=== PATIENT | male | born 1965 | race Caucasian/White ===

== ENCOUNTER 2019-03-25 07:50 | Day surgery (SDC) | payer OTHER, SELFPAY ==
[2019-03-20 11:42] VITALS: BMI 26.4
[2019-03-25] VITALS (13 sets, daily range): BP systolic 94–120; BP diastolic 52–87; PULSE 54–66; RESP 9–15; TEMP 36.2–36.6; O2SAT 96–99; BMI 26.4
--- NOTE | 2019-03-25 08:42 | PM.HP.1 ---
History of Present Illness History of Present Illness Date Patient Seen: 03/25/19 Time Patient Seen: 08:42 Chief complaint: [id number] Narrative: Pt seen and examined unchanged since clinic note bilateral small inguinal hernias Plan for laproscopic TEP repairs Possible conversion to open Patient History Medical History (Updated 03/20/19 @ 11:49 by Natasha Pena RN) Arthritis (Acute) Back pain (Acute) Basal cell carcinoma (Resolved) Constipation (Acute) Depression (Acute) Hx of gastric ulcer (Acute ~2004) Kidney stones (Resolved) Migraine headache (Chronic) Osteoarthritis (Acute) Sinusitis (Acute) Surgical History (Updated 03/20/19 @ 11:49 by Natasha Pena RN) History of carpal tunnel surgery of right wrist (Acute) History of colonoscopy (Acute ~2016) Hx of cervical discectomy (Acute 03/06/16) Hx of shoulder surgery (Acute) Family History (Updated 11/10/18 @ 14:36 by Elisa Murphy LPN) Father Hypertension Heart disease, hypertensive, benign Mother Cancer Social History (Updated 11/10/18 @ 14:38 by Elisa Murphy LPN) marital status: household members: spouse and family occupational status: employed Smoking Status: Never smoker alcohol intake: current substance use type: does not use Family & Social History Family History (Updated 11/10/18 @ 14:36 by Elisa Murphy LPN) Father Hypertension Heart disease, hypertensive, benign Mother Cancer Social History: household members spouse,family Tobacco & Substance use: Smoking Status Never smoker alcohol intake current Meds Home Medications and Allergies Home Medications Medication Instructions Recorded Confirmed Type meloxicam 15 mg PO QDAY #0 03/02/16 03/25/19 History sildenafil (antihypertensive) 2 mg PO PRN PRN #0 03/02/16 03/25/19 History sumatriptan succinate [Imitrex] 50 mg PO PRN PRN #0 tab 03/02/16 03/25/19 History bupropion HCl 100 mg tablet,12 hr 100 mg PO DAILY 11/10/18 03/25/19 History sustained-release nadolol 40 mg tablet 40 mg PO DAILY 11/10/18 03/25/19 History oxycodone-acetaminophen 5 mg-325 1 tab PO Q4-6H PRN 11/10/18 03/25/19 History mg tablet Allergies Allergy/AdvReac Type Severity Reaction Status Date / Time aspartame [ASPARTAME] Allergy Mild MIGRAINE Unverified 11/10/18 14:33 sucralose [SUCRALOSE] Allergy Unknown MIGRAINE Unverified 11/10/18 14:33
[2019-03-25] MEDS: LACTATED RINGERS 1,000 ML 42 ML IV (08:45)
[2019-03-25] MEDS: CEFAZOLIN 2 GM/100 ML FROZ.PIGGY IV (09:35)
--- NOTE | 2019-03-25 09:57 | SUR.OPER ---
Supine on padded OR bed, head on pillow, arm padded and tucked at side, legs uncrossed, safety belt at thigh, tape over blanket over lower legs .
--- NOTE | 2019-03-25 09:58 | SUR.OPER ---
positioned on pink pad
--- NOTE | 2019-03-25 09:59 | SUR.OPER ---
Case booked as open bilateral hernia repair
[2019-03-25] MEDS: BUPIVACAINE 0.25% W/ EPI 30 ML VIAL INJ (10:10)
[2019-03-25] MEDS: VANCOMYCIN 1,000 MG VIAL 1000 MG TOP (10:11)
--- NOTE | 2019-03-25 11:17 | PM.OP.1 ---
Operative Date/Time/Diagnoses Date of procedure: 03/25/19 Time of procedure: 11:18 Pre-op diagnosis: Bilateral inguinal hernias Post-op diagnosis: same Procedure & Clinicians Procedure: Laproscopic inguinal hernia repair - TEP - bilateral Same procedure as scheduled: Yes Indications: 53-year-old man presented to the clinic with bilateral inguinal hernia -desired repair, desired rapid return to activity Click Yes if Unassisted: Yes Anesthesia Type: General Operative Notes Findings: Bilateral indirect inguinal hernias Closure Type: primary Specimen(s): none sent Prosthetic devices, grafts, tissues, transplants, or devices: [employer] 3DMax regular weight polypropylene mesh , right and left side size large utilized Estimated Blood Loss (mL): 10 Procedure in detail: Patient was brought to the operating room he is intubated without incident he was prepped and draped in usual sterile fashion time-out was completed. A curvilinear incision was made just inferior to the inferior umbilical crown this was carried through the skin and subcutaneous tissue until the underlying fascia was identified. The fascia overlying the right rectus sheath was cleared of its alveolar of fatty tissue and then a transversely oriented incision was made through the anterior rectus sheath. This was opened approximately 1 cm. The underlying muscles of the rectus abdominis were retracted laterally and a finger was inserted deep to them. Using digital dissection a space was made deep to the fibers of the rectus abdominus muscle but superficial to the posterior sheath. Into the space a 12 mm balloon tip trocar was inserted and held in place. A camera was then inserted through the trocar and the space was dissected utilizing the camera into the pubic symphysis was encountered. Two 5 mm ports were then placed in the midline into the opened up preperitoneal space spaced approximately 4 cm apart equal distance between the pubic symphysis and the umbilicus. Utilizing laparoscopic graspers then the pre tip peritoneal space was widely open. I started on the right side. Jeronimo's ligament was identified and followed out laterally as well as the space of Retzius was opened. I then moved far laterally in the vicinity of the anterior superior iliac spine and open up this space. The peritoneal reflection was identified and pulled posteriorly. I then began to work on the central space at the level of the internal ring. The hernia defect was identified and the hernia sac reduced out of the inguinal canal. The peritoneum was then stripped pushing it up posteriorly well below the internal ring. I then finished the dissection working in the vicinity of the iliac vessels great care was taken to avoid stripping them of their overlying fatty tissue. At this point I felt confident that the area had been well de peritonealized there was no direct defect there is no femoral hernia identified. I then proceeded to open up the space on the left side utilizing identical technique a small did indirect defect was identified and the hernia sac similarly reduced. Next [employer] 3D max polypropylene mesh was obtained both right and left sides this was rolled tightly soaked in vancomycin solution and then placed into the preperitoneal space utilizing the umbilical camera port. both meshes were then on rolled in the respective spaces then oriented so as to well cover the internal ring as well as the site of a potential later a direct defect. Meshes were oriented to meet at the midline. The medial aspect of each mesh was tacked to Jeronimo's ligament utilizing absorbable tacking device. Next I inspected the entire area ensured that hemostasis was excellent as well as ensured that the mesh was well placed without undue wrinkling. The space was then deinsufflated. The 5 mm ports were then removed without difficulty as was the 12 mm umbilical port. the fascial defect was then closed using running 0 Vicryl suture utilizing a UR6 needle. Local anesthetic was infiltrated into the wounds. The wounds were copiously irrigated. Skin was closed using 4 O Vicryl in a subcuticular fashion. Skin glue was applied the patient was extubated and brought to PACU without incident Complications: none Post-operative Condition: stable Disposition: PACU Plan for aftercare: home
[2019-03-25] MEDS: fentaNYL 100 MCG/2 ML INJ 50 MCG IV (11:36)
[2019-03-25] MEDS: OXYCODONE/ACETAMINOPHEN 5/325 TABLET 1 TAB PO ×2 (11:57→13:18)
--- NOTE | 2019-03-25 13:23 | SUR.PHASEII ---
1245 Assumed care from Victoria Garner RN. Patient resting comfortable, present, states that he would like a few more minutes to relax. They state that instructions have been reviewed, no questions. 1300 States that he is ready to go. Interested in another pain pill but declines at the moment: will consider prior to discharge. 1315 Ambulated to the bathroom w/ standby. Voided QS w/o difficulty.
--- NOTE | 2019-03-25 13:32 | SUR.PHASEII ---
1318 PO rx given then to care, home with
== END 2019-03-25 13:20 | disposition home or self-care (01) ==
PROVIDERS: Family Provider Student in an Organized Health Care Education/Training Program; PCP Student in an Organized Health Care Education/Training Program; Visit Provider Surgery
PROC: (CPT 49650; principal; 2019-03-25 08:45)
DX: K40.20 Bilateral inguinal hernia, without obstruction or gangrene, not specified as recurrent (principal)
CPT/HCPCS: 49650; C1781; J0690; J1100; J2405; J2704; J3010

== ENCOUNTER → 2019-04-09 17:01 | Outpatient (CLI) | payer OTHER, SELFPAY | PROVIDERS: PCP Student in an Organized Health Care Education/Training Program | DX: Z23 Encounter for immunization (principal) | CPT/HCPCS: 90471; 90686 ==

== ENCOUNTER 2019-07-13 14:29 | Emergency (ER) | payer OTHER, SELFPAY ==
[2019-07-13 14:57] VITALS: BP 118/68; PULSE 71; RESP 16; TEMP 36.2; O2SAT 97
[2019-07-13 15:13] LABS: Appearance Urine UA CLEAR; Bilirubin Urine UA NEGATIVE (NEGATIVE); Color Urine UA YELLOW; Glucose Urine UA NEGATIVE (Negative); Ketones Urine UA NEGATIVE (NEGATIVE); Leukocyte Esterase Urine UA TRACE (NEGATIVE); Nitrite Urine UA NEGATIVE (Negative); Occult Blood Urine UA 3+ (Negative); Protein Urine UA NEGATIVE (Negative); Specific Gravity Urine UA <=1.005 (1.000-1.035); Urobilinogen Urine UA 0.2 E.U./dL (0.2)
[2019-07-13 15:31] LABS: RBC Urine 30-100/HPF (0-5/HPF)
[2019-07-13 15:32] LABS: Amorphous Sediment Urine 1+; Bacteria Urine Moderate (10-30); Culture Indicated Urine Specimen Cultured; WBC Urine 5-10/HPF (0-5/HPF)
--- NOTE | 2019-07-13 20:08 | ED.MALEGU ---
HPI - Male Genitourinary General Chief complaint: Urogenital-Male Stated complaint: thinks he has a kidney stone Source: patient Mode of arrival: Ambulatory History of Present Illness HPI Narrative: Patient left without being seen. Related Data Home Medications Medication Instructions Recorded Confirmed meloxicam 15 mg PO QDAY #0 03/02/16 04/08/19 sildenafil (pulm.hypertension) 2 mg PO PRN PRN #0 03/02/16 04/08/19 sumatriptan succinate [Imitrex] 50 mg PO PRN PRN #0 tab 03/02/16 04/08/19 bupropion HCl 100 mg tablet,12 hr 100 mg PO DAILY 11/10/18 04/08/19 sustained-release nadolol 40 mg tablet 40 mg PO DAILY 11/10/18 04/08/19 oxycodone-acetaminophen 5 mg-325 1 tab PO Q4-6H PRN 11/10/18 04/08/19 mg tablet Previous Rx's Medication Instructions Recorded acetaminophen 1,000 mg PO Q6H #30 cap 03/25/19 oxycodone See Rx Instructions .ROUTE 03/25/19 .COMPLEX PRN #10 tab polyethylene glycol 3350 [Miralax] 17 gram PO DAILY #10 each 03/25/19 Allergies Allergy/AdvReac Type Severity Reaction Status Date / Time aspartame [ASPARTAME] Allergy Mild MIGRAINE Verified 04/08/19 11:06 sucralose [SUCRALOSE] Allergy Unknown MIGRAINE Verified 04/08/19 11:06 Patient History Medical History (Updated 07/13/19 @ 16:36 by Keisha Miranda RN) Arthritis (Acute) Back pain (Acute) Basal cell carcinoma (Resolved) Constipation (Acute) Depression (Acute) Hx of gastric ulcer (Acute ~2004) Kidney stones (Resolved) Migraine headache (Chronic) Osteoarthritis (Acute) Sinusitis (Acute) Surgical History (Updated 03/20/19 @ 11:49 by Natasha Pena RN) History of carpal tunnel surgery of right wrist (Acute) History of colonoscopy (Acute ~2016) Hx of cervical discectomy (Acute 03/06/16) Hx of shoulder surgery (Acute) Family History (Updated 11/10/18 @ 14:36 by Elisa Murphy LPN) Father Hypertension Heart disease, hypertensive, benign Mother Cancer Social History (Updated 11/10/18 @ 14:38 by Elisa Murphy LPN) marital status: household members: spouse and family occupational status: employed Smoking Status: Never smoker alcohol intake: current substance use type: does not use Smoking Status: Never smoker alcohol intake frequency: holidays/special occasions only Substance Use Type: does not use Exam Initial Vital Signs Initial Vital Signs: Vital Signs Temperature 97.1 F L 07/13/19 14:57 Pulse Rate 71 07/13/19 14:57 Respiratory Rate 16 07/13/19 14:57 Blood Pressure 118/68 07/13/19 14:57 Pulse Oximetry 97 07/13/19 14:57 Course Orders Ordered: ED Orders 07/13/19 15:05 UA Complete [Urinalysis and Microscopic] Stat Urine Culture Stat Vital Signs Vital signs: Vital Signs - 8 hr 07/13/19 14:57 Temperature 97.1 F L Pulse Rate 71 Respiratory Rate 16 Blood Pressure 118/68 Pulse Oximetry 97 MDM - Male Genitourinary Lab Data Labs: Lab Results 07/13/19 Range/Units 15:05 Urine Color Yellow Urine Appearance Clear Urine pH 6.0 (4.5-8.0) Ur Specific [place] <=1.005 (1.000-1.035) Urine Protein Negative (Negative) Urine Glucose (UA) Negative (Negative) g/dL Urine Ketones Negative (NEGATIVE) Urine Occult Blood 3+ H (Negative) Urine Nitrate Negative (Negative) Urine Bilirubin Negative (NEGATIVE) Urine Urobilinogen 0.2 (0.2) E.U./dL Ur Leukocyte Esterase Trace H (NEGATIVE) Urine RBC 30-100/hpf H (0-5/HPF) Urine WBC 5-10/hpf H (0-5/HPF) Amorphous Sediment 1+ Urine Bacteria Moderate (10-30) H (None) Ur Culture Indicated? Specimen cultured Discharge Plan Departure Patient Disposition: Left Without Being Seen Clinical Impression: Patient left after triage Discharge Date/Time: 07/13/19 16:36 Stand Alone Forms: Against Medical Advice
== END 2019-07-13 16:36 | disposition left against medical advice (07) ==
PROVIDERS: Emergency Provider Emergency Medicine; PCP Student in an Organized Health Care Education/Training Program
DX: R31.9 Hematuria, unspecified (principal)
CPT/HCPCS: 81001; 87086; 99281

== ENCOUNTER → 2022-01-26 11:57 | Outpatient (CLI) | payer OTHER, SELFPAY ==
--- NOTE | 2022-01-26 12:18 | DI.CT.S_ITS ---
PROCEDURE: CT IVP A/P W/WO INDICATIONS: Gross hematuria TECHNIQUE: Optional 5 mm thick noncontrast images acquired from the diaphragm to the symphysis pubis. After the administration of intravenous contrast, 5 mm thick images acquired from the diaphragm to the symphysis pubis after a 10-minute delay. 2 mm thick coronal and sagittal reformats were then performed of the kidneys and ureters. For radiation dose reduction, the following was used: automated exposure control, adjustment of mA and/or kV according to patient size. COMPARISON: [facility], CT, IVP (ABD & PEL WWO CONTRAST), 09/25/2013, 9:34. [facility], CT, ABDOMEN/PELVIS WITH CONTRAST, 01/06/2015, 0:51. FINDINGS: Image quality: Excellent. Lung bases: 5 mm right lower middle lobe nodule seen on image 7/series 4. Lung bases are otherwise clear. Urinary system: Both kidneys are normal in size on pre-contrast images. Numerous punctate renal stones are seen in the right kidney measuring up to 6 mm in size and approximately 600 Hounsfield units. Numerous punctate left-sided renal stones are also present measuring up to 7 mm in size and 1200 Hounsfield units. There is a 3 mm stone noted at the right ureterovesicular junction. There is a 4 mm distal right ureteral stone visualized a short distance proximal to the right ureterovesicular junction with associated moderate right-sided hydroureter proximally. No significant periureteral stranding. Moderate-severe right hydronephrosis and dilated right renal pelvis secondary to 2 adjacent renal stones measuring approximately 9 mm in total dimension visualized at the right ureteropelvic junction. No significant perinephric stranding on the right. There is a 7 mm proximal left ureteral stone with associated mild left hydroureter proximally. No left-sided hydronephrosis. No other stones visualized in the remainder of the left ureter. No left perinephric fat stranding. There is normal bilateral renal enhancement. Bilateral renal cysts measuring up to 5.3 cm on the left and 4.0 cm on the right. Renal calyces appear normal in morphology when filled with contrast. Bladder wall thickness is normal. There is incomplete opacification of the bilateral ureters with excreted contrast given presence of ureteral stones. Within these limitations, no evidence for suspicious urothelial abnormalities. Other solid organs: Liver is normal in size and enhancement. Gallbladder is unremarkable . Biliary system is non dilated. Pancreas enhances normally. Spleen is normal in size and enhancement. No adrenal nodules. Peritoneum and bowel: Bowel loops demonstrate normal wall thickness and caliber. No free fluid or air. Scattered colonic diverticulosis. No acute diverticulitis. Normal appendix. Nodes and vessels: No retroperitoneal or mesenteric adenopathy by size criteria. Scattered atherosclerotic calcifications of the abdominal aorta and iliac vessels without aneurysmal dilatation. The inferior vena cava appears patent. Abdominal wall: Tiny fat containing umbilical hernia without acute inflammation. Pelvis: No pathologic free pelvic fluid. No inguinal hernias or adenopathy. Bones: No suspicious bony lesions. No acute vertebral body compression fractures. IMPRESSION: 1. Bilateral obstructing ureteral stones as detailed above with moderate right-sided hydroureter , moderate-severe right sided hydronephrosis, and mild left hydroureter. 2. Additional punctate and round bilateral renal stones measuring up to 6 mm on the right and 7 mm on the left. 3. Colonic diverticulosis without acute diverticulitis. 4. Normal appendix. 5. Atherosclerosis. 6. A 5 mm right middle lobe nodule not definitively seen on comparison CTs. Recommend follow-up CT chest in 12 months to document stability. Dictated by: Gutierrez Vasques M.D. on 01/26/2022 at 15:19 Approved by: Gutierrez Vasques M.D. on 01/26/2022 at 15:48
== END ==
PROVIDERS: PCP Student in an Organized Health Care Education/Training Program; Referring Provider Urology; Visit Provider Urology
DX: N13.2 Hydronephrosis with renal and ureteral calculous obstruction (principal); R31.0 Gross hematuria; N28.1 Cyst of kidney, acquired; R91.1 Solitary pulmonary nodule; K57.90 Diverticulosis of intestine, part unspecified, without perforation or abscess without bleeding; I70.0 Atherosclerosis of aorta
CPT/HCPCS: 74178; Q9967

== ENCOUNTER → 2022-03-22 09:07 | Outpatient (CLI) | payer OTHER, SELFPAY ==
--- NOTE | 2022-03-22 09:10 | DI.US.S_ITS ---
PROCEDURE: US RENAL COMPLETE INDICATIONS: BILATERAL URETERAL CALCULI TECHNIQUE: Real-time scanning was performed of the kidneys and bladder, with image documentation. COMPARISON: [facility], CR, XR ABDOMEN 1 VIEW, 03/06/2022, 11:59. [facility], CR, XR RETROGRADE UROGRAPHY, 02/21/2022, 6:49. [facility], CT, CT IVP A/P W/WO, 01/26/2022, 12:18. FINDINGS: Kidneys: Kidneys are normal in size. Right kidney measures 13.4 cm long; left kidney measures 13 cm long. Mild right hydronephrosis. Mild right hydroureter. No left hydronephrosis. Right kidney stones are present. Largest measuring at 0.7 cm. The area of previously seen obstructing stone on CT is not well evaluated. There is a simple cyst in the right kidney measuring 4.9 cm. There are left kidney stones. Largest measuring 0.6 cm. There is a simple cyst in the left kidney measuring 5.2 cm. Bladder: Pre-void bladder volume is 134 mL. Post-void residual is 10 mL. Pre-void images demonstrate no intraluminal masses or stones. On pre-void images, both ureteral jets are noted with color Doppler interrogation. (Of note, ureteral jets may not be detectable in up to 25% of cases due to insufficient differences in specific gravity between ureteral and bladder urine). Miscellaneous: No free pelvic fluid. IMPRESSION: 1. Mild right hydroureteronephrosis. 2. Bilateral kidney stones. 3. No significant postvoid residual. Ureteral jets are seen. Consider CT KUB for further evaluation. Dictated by: Carlos A Gilmore M.D. on 03/22/2022 at 11:21 Approved by: Carlos A Gilmore M.D. on 03/22/2022 at 11:33
== END ==
PROVIDERS: PCP Family Medicine; Referring Provider Urology; Visit Provider Urology
DX: N20.1 Calculus of ureter (principal); N20.0 Calculus of kidney; N13.30 Unspecified hydronephrosis
CPT/HCPCS: 76770

== ENCOUNTER → 2022-06-12 07:57 | Outpatient (CLI) | payer OTHER, SELFPAY ==
[2022-06-12 09:51] LABS: Add Manual Diff / Slide Review NO; Basophils Absolute Auto 0 /uL (0-100); Basophils Percent Auto 0.5 % (0-2); Eosinophils Absolute Auto 400 /uL (0-450); Eosinophils Percent Auto 4.5 % (2-4); Hematocrit 44.6 % (41-53); Hemoglobin 15.2 g/dL (13.5-17.5); Lymphocytes Absolute Auto 2100 /uL (1100-4500); Lymphocytes Percent Auto 24.1 % (25-40); Mean Corpuscular HGB Conc 34.1 % (30-36); Mean Corpuscular Volume 90.9 fL (80-100); Monocytes Absolute Auto 600 /uL (0-900); Monocytes Percent Auto 7.6 % (3-14); Neutrophils Absolute Auto 5400 /uL (1500-7000); Neutrophils Percent Auto 63.3 % (50-75); Platelet Count 186 X10^3/uL (150-400); Red Cell Distribution Width 12.9 % (11.6-14.8); White Blood Cell Count 8.5 X10^3/uL (4.5-11.0)
[2022-06-12 10:10] LABS: HEMOLYSIS < 15 (0-50)
[2022-06-12 10:19] LABS: Alanine Aminotransferase 30 IU/L (<50); Albumin 3.9 g/dL (3.5-5.0); Albumin Globulin Ratio 1.3 (1.0-2.8); Alkaline Phosphatase 116 U/L (38-126); Aspartate Aminotransferase 24 IU/L (17-59); BUN Creatinine Ratio 11.8 (6-22); Bilirubin Total 0.6 mg/dL (0.2-1.3); Blood Urea Nitrogen 14 mg/dL (9-20); Calcium 8.7 mg/dL (8.4-10.2); Carbon Dioxide 29 mmol/L (22-32); Chloride 103 mmol/L (98-107); Cholesterol 188 mg/dL (140-199); Estimated Glomerular Filt Rate > 60 mL/min (>60); Globulin 3.1 g/dL (1.7-4.1); Glucose 94 mg/dL (70-100); HDL Cholesterol 26 mg/dL (40-60); LDL Cholesterol Calculated 115 mg/dL (<100); Potassium 4.1 mmol/L (3.4-5.1); Sodium 140 mmol/L (137-145); Triglycerides 237 mg/dL (35-150)
[2022-06-12 10:47] LABS: TSH w/ Reflex to FT4 2.32 uIU/mL (0.47-4.68)
[2022-06-12 17:35] LABS: LDL Cholesterol Direct 122 mg/dL (<100)
[2022-06-12 20:47] LABS: Prostate Specific Antigen Scrn 0.437 ng/mL (0.1-4.0)
== END ==
PROVIDERS: PCP Family Medicine; Referring Provider Family Medicine; Visit Provider Family Medicine
DX: Z00.01 Encounter for general adult medical examination with abnormal findings (principal); E78.2 Mixed hyperlipidemia; G43.909 Migraine, unspecified, not intractable, without status migrainosus; G89.29 Other chronic pain; N40.1 Benign prostatic hyperplasia with lower urinary tract symptoms; F52.21 Male erectile disorder; F33.1 Major depressive disorder, recurrent, moderate
CPT/HCPCS: 36415; 80053; 80061; 83721; 84443; 85025; G0103

== ENCOUNTER → 2024-05-05 17:04 | Outpatient (CLI) | payer OTHER, SELFPAY ==
--- NOTE | 2024-05-05 17:06 | DI.RAD.S_ITS ---
PROCEDURE: XR CHEST 2V INDICATIONS: Acute cough TECHNIQUE: 2 views of the chest were acquired. COMPARISON: None. FINDINGS: Surgical changes and devices: Surgical change of the lower cervical spine. Lungs and pleura: Peripheral left upper lobe consolidation and patchy nodularity in the right upper lobe. Mediastinum: Mediastinal contours are normal. Heart size is normal. Bones and chest wall: No suspicious bony abnormalities. Soft tissues appear unremarkable. IMPRESSION: Peripheral left upper lobe consolidation. Differential includes infection, malignancy or pleural base mass. Recommend chest CT for further characterization. Patchy nodularity in the right upper lobe. Findings likely indicate infectious or inflammatory bronchiolitis. Dictated by: Madi Zuñiga M.D. on 05/06/2024 at 9:36 Approved by: Madi Zuñiga M.D. on 05/06/2024 at 9:39
== END ==
PROVIDERS: PCP Family Medicine; Referring Provider Family Medicine; Visit Provider Family Medicine
DX: R05.1 Acute cough (principal)
CPT/HCPCS: 71046

== ENCOUNTER → 2024-06-02 08:05 | Outpatient (CLI) | payer OTHER, SELFPAY ==
--- NOTE | 2024-06-02 | DI.RAD.S_ITS ---
PROCEDURE: XR CHEST 2V INDICATIONS: community acquired pneumonia TECHNIQUE: 2 views of the chest were acquired. COMPARISON: [facility], CR, XR CHEST 2V, 05/05/2024, 17:06. FINDINGS: Heart, mediastinum and pulmonary vascular: Heart is normal in size and configuration. Mediastinum is unremarkable. Pulmonary vascular is normal. Lungs: Small in with filtrates in both mid lungs have nearly resolved with only minimal residual on the left. Pleural spaces: Normal-no effusions or pneumothorax. Bones and soft tissues: Normal IMPRESSION: Near complete resolution in bilateral infiltrates Dictated by: Leonid Van M.D. on 06/02/2024 at 10:28 Approved by: Leonid Van M.D. on 06/02/2024 at 10:30
== END ==
PROVIDERS: PCP Family Medicine; Referring Provider Family Medicine; Visit Provider Family Medicine
DX: J18.9 Pneumonia, unspecified organism (principal)
CPT/HCPCS: 71046

== ENCOUNTER → 2024-06-26 16:10 | Outpatient (CLI) | payer OTHER, SELFPAY ==
--- NOTE | 2024-06-26 16:12 | DI.RAD.S_ITS ---
PROCEDURE: XR CHEST 2V INDICATIONS: PNEUMONIA TECHNIQUE: 2 views of the chest were acquired. COMPARISON: [facility], CR, XR CHEST 2V, 06/02/2024, 8:12. [facility], CR, XR CHEST 2V, 05/05/2024, 17:06. FINDINGS: Surgical changes and devices: None. Lungs and pleura: Persistent mild left mid lung opacity. Right mid lung opacity is nearly resolved, but with persistent small nodularities. No pleural effusions Mediastinum: Normal heart size, unchanged Bones and chest wall: Degenerative changes IMPRESSION: Mild mid lung opacity is decreased, but still faintly visible on today's study. Right mid lung opacity is nearly resolved, but with persistent small nodularities. Consider future imaging surveillance to further evaluate for resolution/stability with radiograph or CT. Dictated by: Doc Lee M.D. on 06/27/2024 at 20:31 Approved by: Doc Lee M.D. on 06/27/2024 at 20:33
== END ==
PROVIDERS: PCP Family Medicine; Referring Provider Family Medicine; Visit Provider Family Medicine
DX: J18.9 Pneumonia, unspecified organism (principal)
CPT/HCPCS: 71046

== ENCOUNTER → 2024-07-07 06:59 | Outpatient (CLI) | payer OTHER, SELFPAY ==
[2024-07-07 07:38] LABS: Estimated Glomerular Filt Rate 57 mL/min (>60)
--- NOTE | 2024-07-07 08:06 | DI.CT.S_ITS ---
PROCEDURE: CT CHEST W CON INDICATIONS: PERSISTENT OPACITY ON CXR AFTER PNEUMONIA TECHNIQUE: After the administration of intravenous contrast, 5 mm thick sections acquired from the pulmonary apices to the posterior costophrenic angles. 1 mm axial lung, 5 mm thick coronal and sagittal reformats and 7 mm axial MIP were acquired. For radiation dose reduction, the following was used: automated exposure control, adjustment of mA and/or kV according to patient size. COMPARISON: [facility], CR, XR CHEST 2V, 05/05/2024, 17:06. [facility], CR, XR CHEST 2V, 06/26/2024, 16:17. FINDINGS: Image quality: Diagnostic. Lower Neck: No enlarged lymph nodes. Thyroid: No thyroid nodules which require sonographic follow up, per consensus guidelines. Axillae: No enlarged lymph nodes. Chest Wall: Unremarkable. Bones: Unremarkable. Lungs and Pleura: No pneumothorax or pleural effusions. Pleural parenchymal bands in the upper lobes, corresponding to residual opacities on comparison x-rays period scattered tree-in-bud and centrilobular nodules, some which are calcified. Volume loss and mild bronchiectasis in the lingula. 7 x 8 millimeter nodule in the left upper lobe (series 3, image 161). Heart: Heart size is normal. No pericardial effusion. Thoracic Vessels: The aorta and pulmonary arteries demonstrate normal size. Mediastinum and Zaira: No enlarged lymph nodes. Esophagus: No wall thickening. No hiatal hernia. Upper Abdomen: Visualized upper abdomen solid organs and bowel loops appear normal. IMPRESSION: Pleural parenchymal bands in the upper lobes, either representing scarring or organizing pneumonia. This corresponds to the findings on comparison x-rays. Scattered tree-in-bud and centrilobular nodules, some of which are calcified. Findings probably represent a chronic infectious/inflammatory bronchiolitis, such as non tuberculosis mycobacterium infection. 7 x 8 millimeter solid nodule in the left upper lobe. Recommend six-month follow-up per Fleischner society guidelines. Dictated by: Madi Zuñiga M.D. on 07/07/2024 at 11:33 Approved by: Madi Zuñiga M.D. on 07/07/2024 at 11:37
== END ==
PROVIDERS: Radiology Diagnostic Radiology; PCP Family Medicine; Referring Provider Family Medicine; Visit Provider Family Medicine
DX: J18.9 Pneumonia, unspecified organism (principal); R91.8 Other nonspecific abnormal finding of lung field; M54.9 Dorsalgia, unspecified
CPT/HCPCS: 36415; 71260; 82565; Q9967

== ENCOUNTER → 2024-09-01 10:30 | Outpatient (CLI) | payer OTHER, SELFPAY | PROVIDERS: PCP Family Medicine; Referring Provider Family Medicine; Visit Provider Family Medicine | DX: R05.8 Other specified cough (principal); R94.2 Abnormal results of pulmonary function studies | CPT/HCPCS: 94060; 94726; 94729 ==

== ENCOUNTER → 2024-11-16 16:40 | Outpatient (CLI) | payer OTHER, SELFPAY ==
--- NOTE | 2024-11-16 16:42 | DI.RAD.S_ITS ---
PROCEDURE: XR CHEST 2V INDICATIONS: ACUTE COUGH TECHNIQUE: 2 views of the chest were acquired. COMPARISON: [facility], CR, XR CHEST 2V, 06/26/2024, 16:17. [facility], CR, XR CHEST 2V, 06/02/2024, 8:12. FINDINGS: Surgical changes and devices: None. Lungs and pleura: There is no segmental consolidation the right upper lobe anteriorly. Mediastinum: Mediastinal contours are normal. Heart size is normal. Bones and chest wall: No suspicious bony abnormalities. Soft tissues appear unremarkable. IMPRESSION: New segmental consolidation in the right upper lobe anteriorly. This may represent pneumonia in the acute setting. The possibility of endobronchial lesion with postobstructive consolidation can be further assessed with CT. Dictated by: Osiel Noonan M.D. on 11/16/2024 at 20:36 Approved by: Osiel Noonan M.D. on 11/16/2024 at 20:37
== END ==
PROVIDERS: PCP Family Medicine; Referring Provider Family Medicine; Visit Provider Family Medicine
DX: R05.1 Acute cough (principal); J01.00 Acute maxillary sinusitis, unspecified
CPT/HCPCS: 71046

== ENCOUNTER → 2024-12-03 15:38 | Outpatient (CLI) | payer OTHER, SELFPAY ==
--- NOTE | 2024-12-03 15:43 | DI.RAD.S_ITS ---
PROCEDURE: XR CHEST 2V INDICATIONS: COUGH TECHNIQUE: 2 views of the chest were acquired. COMPARISON: [facility], CT, CT CHEST W CON, 07/07/2024, 8:06. [facility], CR, XR CHEST 2V, 06/26/2024, 16:17. [facility], CR, XR CHEST 2V, 11/16/2024, 16:41. FINDINGS: Surgical changes and devices: Lower cervical spine fixation hardware partially visualized. Lungs and pleura: Persistent subsegmental consolidation involving the right upper lobe anteriorly not significant changed from prior exam. Lungs otherwise are clear. Mediastinum: Mediastinal contours are normal. Heart size is normal. Bones and chest wall: No suspicious bony abnormalities. Soft tissues appear unremarkable. IMPRESSION: Persistent right upper segmental consolidation unchanged from prior examination. Endobronchial lesion cannot be excluded and chest CT scan is recommended for further assessment. Dictated by: Benji Regan Saqib Interpreted: Rachel Kraus MD on 12/05/2024 at 12:00 Transcribed by: NOEMÍ on 12/05/2024 at 12:02 Approved by: Rachel Kraus M.D. on 12/07/2024 at 7:42
== END ==
PROVIDERS: PCP Family Medicine; Referring Provider Family Medicine; Visit Provider Family Medicine
DX: R05.2 Subacute cough (principal)
CPT/HCPCS: 71046

== ENCOUNTER → 2024-12-08 07:59 | Outpatient (CLI) | payer OTHER, SELFPAY ==
[2024-12-08 08:22] LABS: Estimated Glomerular Filt Rate > 60 mL/min (>60)
--- NOTE | 2024-12-08 12:47 | DI.CT.S_ITS ---
PROCEDURE: CT CHEST W CON INDICATIONS: COUGH/LAB EO TECHNIQUE: After the administration of intravenous contrast, 5 mm thick sections acquired from the pulmonary apices to the posterior costophrenic angles. 1 mm axial lung, 5 mm thick coronal and sagittal reformats and 7 mm axial MIP were acquired. For radiation dose reduction, the following was used: automated exposure control, adjustment of mA and/or kV according to patient size. COMPARISON: [facility], CT, CT CHEST W CON, 07/07/2024, 8:06. FINDINGS: Image quality: Diagnostic. Lower Neck: No enlarged lymph nodes. Thyroid: No thyroid nodules which require sonographic follow up, per consensus guidelines. Axillae: No enlarged lymph nodes. Chest Wall: Unremarkable. Bones: Unremarkable. Lungs and Pleura: No pneumothorax or pleural effusions. Small airway densities again seen in both upper lobes. There is new mild to moderate band-like consolidation in the right upper lobe anteriorly and medially. No definite endobronchial obstructing lesion seen. Mild linear density seen also in the right middle lobe. Mild patchy ground-glass density in the right lower lobe medially is also new. There has been significant improvement in the left upper lobe, with linear and small airway residual densities in this region. The previously seen 8 mm nodular density posteriorly also appears mildly improved, most likely inflammatory. Heart: Heart size is normal. No pericardial effusion. Thoracic Vessels: The aorta and pulmonary arteries demonstrate normal size. Mediastinum and Zaira: No enlarged lymph nodes. Esophagus: No wall thickening. No hiatal hernia. Upper Abdomen: Visualized upper abdomen solid organs and bowel loops appear normal. IMPRESSION: 1. There is new mild to moderate consolidation in the right upper lobe which appears mostly enhancing, suggesting atelectasis. However, there is also probably mild component of pneumonitis in the right upper lobe and right lower lobe. 2. There has been improvement of parenchymal findings in the left upper lobe, suggestive of resolving atypical infection. The previously seen 8 mm nodule is also mildly improved, no new suspicious focal lesion otherwise. Dictated by: Osiel Noonan M.D. on 12/08/2024 at 17:40 Approved by: Osiel Noonan M.D. on 12/08/2024 at 17:46
== END ==
LOC: CT 08:00
PROVIDERS: PCP Family Medicine; Referring Provider Family Medicine; Visit Provider Family Medicine
DX: R05.2 Subacute cough (principal); J18.9 Pneumonia, unspecified organism; R91.1 Solitary pulmonary nodule
CPT/HCPCS: 36415; 71260; 82565; Q9967

== ENCOUNTER → 2025-03-16 10:41 | Outpatient (CLI) | payer OTHER, SELFPAY ==
--- NOTE | 2025-03-16 | DI.CT.S_ITS ---
PROCEDURE: CT CHEST WO CON INDICATIONS: chronic pansinusitis/ recurrent pneumonia TECHNIQUE: Noncontrast 5 mm thick sections acquired from the pulmonary apices to the posterior costophrenic angles. 1 mm lung window, 5 mm thick coronal and sagittal and 7 mm axial MIP reformats were then acquired. For radiation dose reduction, the following was used: automated exposure control, adjustment of mA and/or kV according to patient size. COMPARISON: [facility], CT, CT CHEST W CON, 12/08/2024, 13:07. [facility], CT, CT CHEST W CON, 07/07/2024, 8:06. FINDINGS: Image quality: Diagnostic. Lungs and Pleura: Recurrence and slight progression of linear, bandlike consolidation in the lateral left upper lobe. Improvement in size and density of anteromedial right upper lobe atelectatic consolidation. Peripheral tree-in-bud nodularity involving the upper lobes is similar. Numerous clustered calcifications in the bilateral perihilar regions, right more so than left. Decreasing size lingular nodule, previously 9 mm, now 5 mm. Mild peripheral bronchial wall thickening is also unchanged. No visible endobronchial nodules. No pleural effusions or pleural calcifications. Lower Neck: No enlarged lymph nodes. Thyroid: Normal CT appearance. Axillae: No enlarged lymph nodes. Chest Wall: No suspicious chest wall lesions. Bones: No suspicious bone lesion. Mild degenerative changes in the spine. Thoracic Vessels: The aorta and pulmonary arteries demonstrate normal size. Mediastinum and Zaira: No enlarged lymph nodes. No change in borderline, probably reactive hilar and mediastinal lymph nodes. Heart: Heart size is normal. No pericardial effusion. Esophagus: No wall thickening. No hiatal hernia. Upper Abdomen: Partially imaged left upper pole intrarenal collecting system calcifications and large exophytic cyst. Visible portions of upper abdominal organs are otherwise normal. IMPRESSION: Waxing and waning upper lobe consolidations are persistent. Predominantly upper lobe findings of bronchial wall thickening, peripheral pneumonitis, and nodularity, both calcified and noncalcified. Findings suggest atelectasis versus chronic lung diseases such as organizing or eosinophilic pneumonias, hypersensitivity pneumonitis, or sarcoidosis. Dictated by: Jessica Montoya M.D. on 03/16/2025 at 12:09 Approved by: Jessica Montoya M.D. on 03/16/2025 at 12:33
--- NOTE | 2025-03-16 | DI.CT.S_ITS ---
PROCEDURE: CT SINUS SCREEN WO CON INDICATIONS: chronic pansinusitis/ recurrent pneumonia TECHNIQUE: Noncontrast 3.0 mm axial images acquired from the frontal sinuses to the mid- sella, with coronal and sagittal reformats. For radiation dose reduction, the following was used: automated exposure control, adjustment of mA and/or kV according to patient size. COMPARISON: None. FINDINGS: Image quality: Excellent. Maxillary Sinuses: No bony remodeling or destruction. Severe mucosal thickening. Air fluid levels. Ethmoid Air Cells: No bony remodeling or destruction. Severe mucosal thickening. Sphenoid Sinuses: No bony remodeling or destruction. Severe mucosal thickening. Air-fluid levels Frontal Sinuses: No bony remodeling or destruction. Severe mucosal thickening. Ostiomeatal Complexes: Ostiomeatal units are opacified. No Chata cells. Miscellaneous: Visualized intra-orbital contents are normal. No óscar bullosa or paradoxical turbinate curvature. Nasal septum is deviated to the left. IMPRESSION: Severe chronic pansinusitis with superimposed acute sinusitis involving the bilateral maxillary and sphenoid sinuses. Dictated by: Humaira Mera MD, PhD on 03/16/2025 at 12:37 Approved by: Humaira Mera MD, PhD on 03/16/2025 at 12:39
== END ==
LOC: CT 10:42
PROVIDERS: PCP Family Medicine; Referring Provider Family Medicine; Visit Provider Otolaryngology
DX: J18.9 Pneumonia, unspecified organism (principal); J01.80 Other acute sinusitis; J32.4 Chronic pansinusitis; R43.0 Anosmia; R09.82 Postnasal drip
CPT/HCPCS: 70486; 71250

== ENCOUNTER → 2025-06-22 09:17 | Outpatient (CLI) | payer OTHER, SELFPAY ==
--- NOTE | 2025-06-22 09:19 | DI.CT.S_ITS ---
PROCEDURE: CT CHEST WO CON INDICATIONS: Solitary pulmonary nodule TECHNIQUE: Noncontrast 2.0-2.5 mm thick sections acquired from the pulmonary apices to the posterior costophrenic angles. 7 mm thick axial MIP and 5 mm coronal and sagittal reformats were then acquired. For radiation dose reduction, the following was used: automated exposure control, adjustment of mA and/or kV according to patient size. COMPARISON: [facility], CT, CT CHEST WO [facility], 03/16/2025, 10:51. FINDINGS: Image quality: Excellent Lungs: Mild consolidation with associated bandlike parenchymal abnormality in the right upper lobe, grossly unchanged from prior exam. Scattered calcified granulomas. Multifocal bronchial plugging. Interval development of 1.0 cm consolidation versus pulmonary nodule in the superior segment of the right lower lobe (3:102). Consolidation in the left lung apex, measuring 2.6 cm, new from prior exam. The consolidation in the left upper lobe, not has somewhat linear appearance, improved in comparison to prior exam. Small area consolidation in the left lingula, progressed from prior exam. Scattered central lobular micro nodules in the left upper lobe. Interval development of small area consolidation in the left lower lobe (3:140). No pleural effusion or pneumothorax. Soft tissue/mediastinal findings: Visualized thyroid is unremarkable. Mild calcification of the thoracic aorta. No thoracic aorta aneurysm. Heart is normal in size. No pericardial effusion. No significant coronary artery calcification. No mediastinal, hilar, or axillary lymphadenopathy. Visualized upper abdomen: Unremarkable Bones: No suspicious lytic or blastic lesion. IMPRESSION: 1. Multifocal consolidation of bilateral lung, overall, progressed from prior exam. 2. Interval development 1.0 cm consolidation versus pulmonary nodule in the right lower lobe. Recommend short-term follow-up in 3 months. Dictated by: Cecille Garcias M.D. on 06/22/2025 at 12:56 Approved by: Cecille Garcias M.D. on 06/22/2025 at 13:07
== END ==
LOC: CT 09:18
PROVIDERS: PCP Family Medicine; Referring Provider Family Medicine; Visit Provider Family Medicine
DX: J18.9 Pneumonia, unspecified organism (principal); R91.1 Solitary pulmonary nodule
CPT/HCPCS: 71250